=== PATIENT | female | born 1950 | race Two or more races ===

== ENCOUNTER 2023-09-26 12:00 | Inpatient (IN) | payer OTHER ==
[~2023-09-26] VITALS: Ht 154.9 cm; Wt 65.3 kg
[2023-09-26] MEDS ORDERED: JENTADUETO XR1 EACH PO (13:37)
[2023-09-26] MEDS ORDERED: SINGULAIR10 MG PO (13:38)
[2023-09-26] MEDS ORDERED: GLIMEPIRIDE1 M1 PO (13:38)
[2023-09-26] MEDS ORDERED: NORVASC5 MG PO (13:39)
[2023-09-26] MEDS ORDERED: HYDROCHLOROTHIA25 MG PO (13:39)
[2023-09-26] MEDS ORDERED: AVAPRO300 MG PO (13:39)
[2023-09-26] MEDS ORDERED: ROSUVASTATIN CA40 MG PO (13:41)
[2023-09-26] MEDS ORDERED: CARDURA XL4 MG PO (13:41)
[2023-09-26] MEDS ORDERED: DAFLONEX-XL 11300 MG PO (13:42)
[2023-09-26] MEDS ORDERED: BUMETANIDE2 MG PO (13:42)
[2023-10-03] MEDS ORDERED: METRONIDAZOLE/SODIUM CHLORIDE 500 MG/100 ML PIGGYBACK IV ONE ×2 (07:07→12:24)
[2023-10-03] MEDS ORDERED: CEFTRIAXONE SODIUM 2,000 MG VIAL ONE (07:07)
[2023-10-03] MEDS ORDERED: LIDOCAINE HCL 1%/EPINEPHRINE 20ML VIAL IJ ONE (07:41)
[2023-10-03] MEDS ORDERED: BUPIVACAINE HCL/MPF 0.5% 30ML VIAL ONE (07:41)
[2023-10-03] MEDS ORDERED: TEZSPIRE210 MG/1.1 (08:14)
[2023-10-03] MEDS ORDERED: EPINEPHRIN0.3 MG/0.3 (08:14)
[2023-10-03] MEDS ORDERED: ST. JOSEPH ASPI81 M2 (08:15)
[2023-10-03] MEDS ORDERED: ALENDRONATE SOD70 MG (08:15)
[2023-10-03] MEDS ORDERED: FOLIC ACID1 MG (08:15)
[2023-10-03] MEDS ORDERED: VISTASEAL DUAL APPICATOR 1 EACH APPL TOP ONE (08:36)
[2023-10-03] MEDS ORDERED: THROMBIN,HU/FIBRINOGEN/CALCIUM 10 ML SYRINGE TOP ONE (08:36)
[2023-10-03] MEDS ORDERED: SUGAMMADEX SODIUM 200 MG/2 ML VIAL IV ONE (09:10)
[2023-10-03] MEDS ORDERED: MORPHINE SULFATE 4 MG/ML CARTRIDGE IV PRN (10:15)
[2023-10-03] MEDS ORDERED: ONDANSETRON HCL 2 MG/ML VIAL IV PRN (10:15)
[2023-10-03] MEDS ORDERED: RINGERS SOLUTION,LACTATED 1,000 ML IV SCH (10:15)
[2023-10-03] MEDS ORDERED: OxyCODONE HCL 5 MG TABLET (ROXICODONE) PO PRN (10:15)
[2023-10-03] MEDS ORDERED: ONDANSETRON HCL 2 MG/ML VIAL ONE (10:34)
[2023-10-03] MEDS ORDERED: hydrALAZINE HCL 20 MG VIAL IV PRN (11:45)
[2023-10-03] MEDS ORDERED: LACTOBACILLUS ACIDOPHILUS 1 CAP CAP PO SCH (12:00)
[2023-10-03] MEDS ORDERED: ACETAMINOPHEN 500 MG GEL..CAP PO SCH (12:00)
[2023-10-03] MEDS ORDERED: TAMSULOSIN HCL 0.4 MG CAP PO SCH (12:00)
[2023-10-03] MEDS ORDERED: hydrALAZINE HCL 20 MG VIAL ONE (12:25)
[2023-10-03] MEDS ORDERED: HYOSCYAMINE SULFATE 0.125 MG TAB.SUBL SL SCH (13:00)
[2023-10-03] MEDS ORDERED: METRONIDAZOLE/SODIUM CHLORIDE 500 MG/100 ML PIGGYBACK IV SCH (13:00)
[2023-10-03] MEDS ORDERED: GABAPENTIN 300 MG CAPSULE PO SCH (17:00)
[2023-10-03] MEDS ORDERED: CIPROFLOXACIN IN 5 % DEXTROSE 400 MG/200 ML PIGGYBAG IV SCH (17:00)
[2023-10-03] MEDS ORDERED: DOXAZOSIN MESYLATE 4 MG TABLET PO SCH (17:00)
[2023-10-03] MEDS ORDERED: FAMOTIDINE/PF 20 MG/2 ML VIAL IV PUSH SCH (21:00)
[2023-10-04 07:08] LABS: HEMATOCRIT 29.6 % (36.0-45.00); HEMOGLOBIN 10.3 g/dL (12.0-15.00); MEAN CELL VOLUME 87.2 fL (80.00-100.00); MEAN CORPUSCULAR HEMOGLOBIN 30.4 pg (27.00-32.0); MEAN CORPUSCULAR HGB CONC 34.9 g/dl (32.0-36.0); PLATELET COUNT 231 K/uL (150-450); RED CELL DISTRIBUTION WIDTH 14.4 % (11.5-14.5)
[2023-10-04 08:00] LABS: ALBUMIN 2.4 gm/dL (3.4-5.0); CALCIUM 8.2 mg/dL (8.5-10.1); CREATININE SERUM 0.71 mg/dL (0.55-1.02); GFR 80.69; MAGNESIUM 1.9 mg/dL (1.8-2.4); PHOSPHOROUS 3.2 mg/dL (2.5-4.9); POTASSIUM 3.78 mEq/L (3.5-5.1)
[2023-10-04] MEDS ORDERED: HYDROCHLOROTHIAZIDE 25 MG TABLET PO SCH (09:00)
[2023-10-04] MEDS ORDERED: DOXAZOSIN MESYLATE 4 MG TABLET PO SCH (09:00)
[2023-10-04] MEDS ORDERED: AMLODIPINE BESYLATE 5 MG TABLET PO SCH (09:00)
[2023-10-04] MEDS ORDERED: IRBESARTAN 300 MG TABLET PO SCH (09:00)
[2023-10-04] MEDS ORDERED: ENOXAPARIN SODIUM 40 MG/0.4 ML SYRINGE SUBCUTANEO SCH (17:00)
[2023-10-04] MEDS ORDERED: DIPHENHYDRAMINE HCL 25 MG PO SCH (17:00)
[2023-10-04] MEDS ORDERED: LIDOCAINE HCL PO SCH (17:00)
[2023-10-04] MEDS ORDERED: DEXAMETHASONE 1.5 MG PO SCH (17:00)
[2023-10-04] MEDS ORDERED: IPRATROPIUM/ALBUTEROL SULFATE 3 ML AMPUL.NEB IH SCH (18:00)
[2023-10-05] MEDS ORDERED: ENOXAPARIN SODIUM 40 MG/0.4 ML SYRINGE SUBCUTANEO SCH (09:00)
[2023-10-07] MEDS ORDERED: TRAMADOL HCL50 MG PO (08:38)
[2023-10-07] MEDS ORDERED: INTESTINEX680 M1 PO (08:39)
[2023-10-07] MEDS ORDERED: HYOSCYAMINE0.125 M1 SL (08:39)
== END 2023-10-07 21:20 | disposition home or self-care (01) | DRG 330 ==
LOC: SURG 10-03 05:10 → O/R 10-03 05:10 → SURG 10-03 10:45
PROVIDERS: ADMIT Surgery; ATTEND Surgery
PROC: 0DBP4ZZ Excision of Rectum, Percutaneous Endoscopic Approach (ICD-10-PCS; 2023-10-03)
PROC: 0TBB4ZZ Excision of Bladder, Percutaneous Endoscopic Approach (ICD-10-PCS; 2023-10-03)
PROC: 0DNW4ZZ Release Peritoneum, Percutaneous Endoscopic Approach (ICD-10-PCS; 2023-10-03)
PROC: 0DJD8ZZ Inspection of Lower Intestinal Tract, Via Natural or Artificial Opening Endoscopic (ICD-10-PCS; 2023-10-03)
PROC: 0DTN4ZZ Resection of Sigmoid Colon, Percutaneous Endoscopic Approach (ICD-10-PCS; principal; 2023-10-03 10:45)
DX: K57.20 Diverticulitis of large intestine with perforation and abscess without bleeding (principal); N32.1 Vesicointestinal fistula; K64.8 Other hemorrhoids; N73.6 Female pelvic peritoneal adhesions (postinfective); N99.4 Postprocedural pelvic peritoneal adhesions; I10 Essential (primary) hypertension